=== PATIENT | male | born 1940 | race Caucasian/White ===

== ENCOUNTER 2022-10-07 20:30 | Emergency (ER) | payer OTHER ==
[~2022-10-07] VITALS: Ht 177.8 cm; Wt 59.0 kg
--- NOTE | 2022-10-07 20:35 | NUR ---
[id number] FROM HOME FOR SOB SATTING AT 90% IN ROOM AIR PER EMS, ON ANTIBIOTIC TREATMENT THROUGH HOME HEALTH FROM [facility]ITAL[facility]. PLACED IN BED, AWAKE- RESPONDING TO VERBAL STIMULI, BREATHING UNLABORED SATURATING AT 93%RA.
--- NOTE | 2022-10-07 21:20 | NUR ---
[employer]S ENGINEER AT BEDSIDE
[2022-10-07] MEDS ORDERED: IV LR 1000 ML 1,000 ML IV ONE (21:30)
--- NOTE | 2022-10-07 21:31 | NUR ---
URINE SAMPLE SENT TO LAB
--- NOTE | 2022-10-07 21:41 | NUR ---
SWAB FOR COVID19 AND RAPID INFLUENZA SENT TO LAB
[2022-10-07 22:03] LABS: BASOPHILS % (AUTO) 0.1 % (0.0-2.0); HEMATOCRIT 39 % (39-51); HEMOGLOBIN 12.4 g/dL (13.5-17.5); LYMPHOCYTES # (AUTO) 1.7 K/uL (0.8-4.8); MEAN CORPUSCULAR HGB CONC 32 g/dl (31.0-36.0); MEAN CORPUSCULAR VOLUME 92 fL (80-96); MONOCYTES # (AUTO) 1.2 K/uL (0.1-1.30); MONOCYTES % (AUTO) 7.5 % (2.0-12.0); NEUTROPHILS # (AUTO) 12.6 K/uL (1.8-8.9); NEUTROPHILS % (AUTO) 81.4 % (43.0-81.0); PLATELET COUNT (AUTO) 299 K/uL (150-450); RED BLOOD CELL COUNT(AUTO) 4.22 MIL/uL (4.5-6.0); WHITE BLOOD COUNT (AUTO) 15.5 K/uL (4.3-11.0)
[2022-10-07 22:26] LABS: CARBON DIOXIDE 25 mmol/L (21-32); CHLORIDE 104 mmol/L (98-107); CREATININE 1.8 mg/dL (0.6-1.3); GLUCOSE 149 mg/dL (74-106); POTASSIUM 3.6 mmol/L (3.5-5.1); SODIUM SERUM 138 mmol/L (136-145); UREA NITROGEN, BLOOD 29 mg/dL (7-18)
[2022-10-07] MEDS ORDERED: PIPERACILLIN /TAZOBACTAM 3.375 G in IV D5W 50 ML IV ONE (22:30)
[2022-10-07] MEDS ORDERED: VANCOMYCIN 1 GM in IV D5W 250 ML IV ONE (22:30)
--- NOTE | 2022-10-07 22:32 | NUR ---
MOVE SHEET SUBMITTED
[2022-10-07 22:33] LABS: BILIRUBIN,URINE NEGATIVE (NEGATIVE); COLOR,URINE YELLOW (YELLOW); LEUKOCYTE ESTERASE ,URINE NEGATIVE (NEGATIVE); NITRITE, URINE NEGATIVE (NEGATIVE); PH,URINE 5.5 (5.0-8.0); PROTEIN,URINE 1+ mg/dl (NEGATIVE); UGLUCOSE 3+ mg/dL (NEGATIVE); UROBILINOGEN,URINE 0.2 EU/dL (0.2)
[2022-10-07] MEDS ORDERED: PIPERACI/TAZO 3.375GM/D5W 50ML PB IV ONE ×2 (22:34→22:37)
[2022-10-07 22:39] LABS: ALANINE AMINOTRANSFERASE 12 U/L (12-78); ALBUMIN 2.3 g/dL (3.4-5.0); ALKALINE PHOSPHATASE 131 U/L (46-116); ASPARTATE AMINOTRANSFERASE 9 U/L (15-37); BILIRUBIN,DIRECT 0.2 mg/dL (0.0-0.2); BILIRUBIN,TOTAL 0.4 mg/dL (0.2-1.0); TOTAL PROTEIN, SERUM 6.5 g/dL (6.4-8.2)
[2022-10-07] MEDS ORDERED: IV NS 0.9% 250 ML IV ONE (22:54)
[2022-10-07] MEDS ORDERED: IOHEXOL-350 100 ML VIAL IV ONE (22:54)
[2022-10-07 23:21] LABS: BACTERIA,URINE Rare /HPF (None Seen); RBC,URINE 0-2 /HPF (0-2); SQUAMOUS EPITHELIAL CELL,UR Few /HPF (None Seen); WBC,URINE 0-2 /HPF (0-3)
--- NOTE | 2022-10-07 23:24 | NUR ---
PT RETURNED TO ER BED [address]
[2022-10-08] MEDS ORDERED: VANCOMYCIN 1 GM /D5W 250 ML PB IV ONE (00:07)
--- NOTE | 2022-10-08 01:47 | NUR ---
AWAITING CTA RESULT AND WILL UPDATE BM WHEN REPORT IS DONE
--- NOTE | 2022-10-08 02:30 | NUR ---
[facility] ACCEPTED TO [facility] ROOM 2307 CALL FOR REPORT [phone]
--- NOTE | 2022-10-08 02:51 | NUR ---
Report given to Renan CANCINO at [facility] with all questions answered. ALS ambulance called. Addendum: 10/08/22 at 0530 by HMACLAREN Report given to Renan CANCINO at [facility] with all questions answered. ACLS ambulance called.
--- NOTE | 2022-10-08 02:56 | NUR ---
[facility] transport auth [id number] [phone] Addendum: 10/08/22 at 0257 by [facility] ETA [id number]; to transport pt to [facility] transport auth [id number] [phone]
--- NOTE | 2022-10-08 03:30 | NUR ---
[facility] HERE TO DIGITAL SOLUTION ARCHITECT PT BUT CT DISK NOT AVAILABLE.
--- NOTE | 2022-10-08 05:47 | NUR ---
CALLED [facility] TO EXTRACTIONS TECHNICIAN PT BUT AMBULANCE COMPANY STATED THAT THEY ARE SATURATED AND UNABLE TO EXTRACTIONS TECHNICIAN PT. WILL TRY ANOTHER COMPANY.
--- NOTE | 2022-10-08 06:04 | NUR ---
[facility] SET UP TRANSPORT AMBULANCE WITH [facility] FOR 10AM
[2022-10-08 09:59] VITALS: BP 100/70
== END 2022-10-08 10:00 | disposition short-term general hospital (02) ==
LOC: ER 20:34
DX: R65.20 Severe sepsis without septic shock (principal); R06.02 Shortness of breath; R09.02 Hypoxemia; D72.829 Elevated white blood cell count, unspecified; N17.9 Acute kidney failure, unspecified; J45.909 Unspecified asthma, uncomplicated; Z86.73 Personal history of transient ischemic attack (TIA), and cerebral infarction without residual deficits; Z20.822 Contact with and (suspected) exposure to COVID-19
CPT/HCPCS: 99291; 96365; 96367; 96368; 93005 ×2; 87804 ×2; 71045; 71275; 85025; 80048; 87040 ×2; 87086; 83605; 80076; 85378; 81001; 36415; 84484 ×2; 87081; 83880; 87426; J3370; J2543 ×3; J7060; J7120 ×2; J7050; Q9967; C9803